=== PATIENT | female | born 1990 | race Hispanic/Latino ===

== ENCOUNTER 2018-10-28 14:34 | Inpatient (IN) | payer MEDICAID ==
[2018-10-28 16:02] LABS: Hematocrit 34.9 % (30.3-42.9); Hemoglobin 11.6 gm/dl (10.1-14.3); Mean Corpuscular HGB Conc 33 % (30-34); Mean Corpuscular Volume 82 fl (79-97); Platelet Count 255 K/mm3 (140-440); Red Blood Count 4.26 M/mm3 (3.65-5.03); Red Cell Distribution Width 16.4 % (13.2-15.2)
[2018-10-28 16:18] LABS: Alanine Aminotransferase 13 units/L (7-56); Uric Acid 6.1 mg/dL (3.5-7.6)
[2018-10-28 17:00] LABS: Bilirubin,Urine NEG (Negative); Blood,Urine NEG (Negative); Color,Urine Yellow (Yellow); Mucus,Urine FEW /HPF; Urobilinogen,Urine < 2.0 mg/dL (<2.0)
--- NOTE | 2018-10-28 18:30 | Ultrasound Report ---
PROCEDURE: US OB FOLLOW UP TECHNIQUE: Pelvic obstetrical sonographic imaging was performed HISTORY: date/iufd COMPARISONS: None FINDINGS: Images demonstrate single intrauterine gestation in breech presentation. Posterior placenta grade 0. No heart rate is identified. demise. estimated gestational age as follows: Biparietal diameter 24 weeks 6 days Head circumference 25 weeks 3 days Abdominal circumference 25 weeks 5 days Femur length 24 weeks 3 days Calculated estimated gestational age by ultrasound is 25 weeks 1 day with estimated due date of 2018 Estimated weight is 779 g. HC/AC 1.1 cephalic index 77.8. Very low amniotic fluid volume. IMPRESSION: demise. Estimated weight 779 g. Very little amniotic fluid is present. Critical level 1 results. Findings are called on 10/28/2018 at 1828 hours Eastern standard time. This document is electronically signed by Gloria Hernandez MD., Oct 28 2018 06:28:29 PM ET
[2018-10-28] MEDS: CYTOTEC VG SCH (20:56)
--- NOTE | 2018-10-28 21:10 | History and Physical Report ---
History of Present Illness Date of examination: 10/28/18 Date of admission: 10/28/18 14:34 Chief complaint: demise History of present illness: 28y/o @ 25+1 weeks presents for induction of labor secondary to demise. The patient presented yesterday for her first OB appt in this and was found to have a demise. Her history is complicated 2 deliveries secondary to severe preeclampsia(HELLP). The patient underwent deliveries for both pregnancies. The patient and denies vaginal bleeding or leakage of fluid. She has not had any preeclamptic symptoms during the . Past History Past Medical History: other (preeclampsia) Past Surgical History: section Social history: single - Obstetrical History Expected Date of Delivery: 02/09/19 Actual Gestation: 25 Week(s) 1 Day(s) : 3 Para: 2 Hx # Term Pregnancies: 0 Number of Pregnancies: 2 Spontaneous Abortions: 0 Induced : 0 Number of Living Children: 2 Medications and Allergies Allergies Allergy/AdvReac Type Severity Reaction Status Date / Time No Known Allergies Allergy Verified 04/25/14 02:30 Home Medications Medication Instructions Recorded Confirmed Last Taken Type Ibuprofen [Motrin] 800 mg PO Q8H #30 tablet 04/25/14 Unknown Rx methOCARBAMOL [Robaxin] 500 mg PO BID #30 tab 04/25/14 Unknown Rx traMADol [Ultram 50 MG tab] 50 mg PO Q6HR PRN #30 tablet 04/25/14 Unknown Rx Active Meds: Active Medications Misoprostol (Cytotec) 200 mcg VG Q6HR ANDREW Last Admin: 10/28/18 20:56 Dose: 200 mcg Documented by: Review of Systems All systems: negative - Vital Signs Vital signs: Vital Signs Pulse BP 75 130/80 10/28/18 16:12 10/28/18 16:12 Temp Pulse Resp BP Pulse Ox 97.9 F 99 H 16 124/87 10/28/18 18:30 10/28/18 20:59 10/28/18 18:30 10/28/18 20:59 - Physical Exam Breasts: Positive: deferred Cardiovascular: Regular rate Lungs: Positive: Clear to auscultation Abdomen: Positive: normal appearance Results Result Diagrams: 10/28/18 15:41 10/28/18 15:41 Abnormal lab results 0510/28/18 10/28/18 Range/Units 15:41 15:41 16:35 WBC 12.6 H (4.5-11.0) K/mm3 MCH 27 L (28-32) pg RDW 16.4 H (13.2-15.2) % Creatinine 0.5 L (0.7-1.2) mg/dL Lactate Dehydrogenase 245 H (91-180) units/L Urine pH 8.0 H (5.0-7.0) All other labs normal. Assessment and Plan - Patient Problems (1) demise Current Visit: Yes Status: Acute Plan to address problem: Admit for induction of labor
[2018-10-28] MEDS ORDERED: AMBIEN PO PRN (22:45)
[2018-10-28] MEDS ORDERED: AMBIEN ONE (22:46)
[2018-10-29] MEDS: CYTOTEC VG SCH ×3 (04:00→17:00)
[2018-10-29] MEDS: STADOL IV PRN ×3 (04:37→13:56)
[2018-10-29] MEDS ORDERED: ZOFRAN IV PRN (06:49)
[2018-10-29] MEDS ORDERED: LACTATED RINGERS 1,000 ML IV SCH (10:00)
[2018-10-29] MEDS ORDERED: NARCAN 2 MG/2 ML IV PRN (10:25)
--- NOTE | 2018-10-29 10:25 | Anesthesia Consultation ---
Anesthesia Consult and Med Hx Date of service: 10/29/18 - Airway Anesthetic Teeth Evaluation: Good ROM Head & Neck: Adequate Mental/Hyoid Distance: Adequate Mallampati Class: Class II Intubation Access Assessment: Probably Good - Pre-Operative Health Status ASA Pre-Surgery Classification: ASA2 Proposed Anesthetic Plan: Epidural, Spinal - Pulmonary Hx Asthma: No COPD: No Hx Pneumonia: No - Cardiovascular System Hx Hypertension: No - Central Nervous System Hx Seizures: No Hx Psychiatric Problems: No - Endocrine Hx Renal Disease: No Hx End Stage Renal Disease: No Hx Hypothyroidism: No Hx Hyperthyroidism: No - Hematic Hx Anemia: No Hx Sickle Cell Disease: No - Other Systems Hx Alcohol Use: No
[2018-10-29] MEDS ORDERED: SUBLIMAZE ONE (10:44)
[2018-10-29] MEDS ORDERED: fentaNYL-BUPIV 2 MCG/ML-0.125% 200 MCG/100 ML BAG EPIDURAL SCH (11:00)
[2018-10-29] MEDS ORDERED: SUBLIMAZE IV ONE (11:36)
[2018-10-29] MEDS ORDERED: AFLURIA QUAD 2018-2019 SYRINGE IM ONE (12:00)
--- NOTE | 2018-10-29 17:25 | Progress Note ---
Assessment and Plan A/P HP#2 IUFD IOL with cytototec offer epidural continue with IOL with cytotec expect vaginal delivery Subjective - Subjective Date of service: 10/29/18 Principal diagnosis: IUFD, hx of hellp Patient reports: loss of fluid (arom meconium ), movement normal, no new complaints, no vaginal bleeding, no contractions Objective - Vital Signs Vital Signs: Vital Signs - 12hr 10/29/18 10/29/18 10/29/18 08:04 08:24 08:35 Temperature 97.0 F L Pulse Rate 85 56 L Blood Pressure 144/97 120/67 10/29/18 10/29/18 10/29/18 09:05 09:35 10:05 Temperature Pulse Rate 74 52 L 64 Blood Pressure 129/71 124/60 131/70 10/29/18 10/29/18 10/29/18 10:35 11:05 11:34 Temperature Pulse Rate 83 57 L 65 Blood Pressure 171/80 138/89 137/87 10/29/18 10/29/18 10/29/18 12:04 12:34 13:35 Temperature Pulse Rate 83 92 H 71 Blood Pressure 139/77 138/81 184/103 10/29/18 10/29/18 10/29/18 13:56 14:05 14:35 Temperature Pulse Rate 85 67 85 Blood Pressure 180/98 135/85 147/89 10/29/18 10/29/18 15:04 17:02 Temperature 97.3 F L Pulse Rate 73 Blood Pressure 135/98 - Exam Breasts: normal Cardiovascular: Regular rate, Normal S1 Lungs: Clear to auscultation, Normal air movement Abdomen: Present: normal appearance, soft, normal bowel sounds. Absent: distention, tenderness, guarding Uterus: Present: normal, firm. Absent: bogginess, tenderness Cervical Dilatation: 3 Cervical Effacement Percentage: 80 station: 1 Uterine Contraction Pattern: Regular Uterine Tone Measurement Phase: Contraction Uterine Contraction Intensity: Moderate Extremities: normal Deep Tendon Reflex Grade: Normal +2 - Labs Labs: Abnormal Labs 10/28/18 10/28/18 10/28/18 15:41 15:41 16:35 WBC 12.6 H MCH 27 L RDW 16.4 H Creatinine 0.5 L Lactate Dehydrogenase 245 H Urine pH 8.0 H Laboratory Results - last 24 hr 10/28/18 15:45 Blood Type A NEGATIVE Antibody Screen Negative
[2018-10-29] MEDS ORDERED: PITOCin/NS 20 UNIT/1000ML DRIP 20 UNITS/1,000 ML BAG IV SCH (18:00)
[2018-10-29] MEDS ORDERED: PITOCin/NS 20 UNIT/1000ML DRIP 20,000 MILLIUNITS/1,000 ML BAG IV ONE (18:07)
--- NOTE | 2018-10-29 18:25 | Procedure Note ---
OB Delivery Note - Delivery Date of Delivery: 10/29/18 Surgeon: MARISEL KIM Estimated blood loss: 100cc - Vaginal Delivery presentation: breech Intrapartum events: no care, meconium, other(please specify) (iufd) Delivery induction: misoprostol Delivery augmentation: rupture of membranes Route of delivery: breech extraction Delivery placenta: spontaneous Delivery cord: 3 umbilical vessels Delivery laceration: none Anesthesia: none Delivery comments: Patient was noted to be c/c and +1 and delviered a non viable fetus breech extraction. The cord was calmped and cut and baby given to nurse. Apgars 0 and 0. No tears appreciated. Patient tolerate procedure well. Excellent hemostasis. EBL 100 cc - Infant A at 1 minute: 0 at 5 minutes: 0 Infant Gender: Female
[2018-10-29] MEDS: PERCOCET 5/325 PO PRN (21:42)
[2018-10-29] MEDS: IBUPROFEN PO PRN (21:42)
[2018-10-30] MEDS: CYTOTEC VG SCH ×2 (01:29→06:45)
[2018-10-30] MEDS: PERCOCET 5/325 PO PRN (04:19)
[2018-10-30 05:58] LABS: Hematocrit 28.4 % (30.3-42.9); Hemoglobin 9.6 gm/dl (10.1-14.3)
[2018-10-30] MEDS: IBUPROFEN PO PRN (06:45)
[2018-10-30 08:38] VITALS: BP 119/74
--- NOTE | 2018-10-30 08:40 | Progress Note ---
Assessment and Plan A/P PPD1 s/p nonviable baby VSS anemic on iron d/c home stable Subjective - Subjective Date of service: 10/30/18 Principal diagnosis: IUFD, hx of hellp Patient reports: appetite normal, voiding normally, pain well controlled, flatus, ambulating normally : (IUFD) Objective - Vital Signs Latest vital signs: Vital Signs Temp Pulse Resp BP BP Pulse Ox 10/30/18 07:32 98 F 91 H 18 119/74 10/30/18 05:55 98.6 F 87 18 120/80 96 10/30/18 01:29 99 F 77 18 120/78 98 10/29/18 21:00 99.6 F 102 H 16 140/88 100 10/29/18 20:05 113 H 130/78 10/29/18 19:35 100 H 143/70 10/29/18 19:05 92 H 148/86 10/29/18 18:35 100 H 173/86 10/29/18 18:21 100 H 170/74 10/29/18 18:20 94 H 177/82 10/29/18 18:06 51 L 85 10/29/18 18:04 102 H 91 10/29/18 18:00 94 H 98 10/29/18 17:02 97.3 F L 10/29/18 15:04 73 135/98 10/29/18 14:35 85 147/89 10/29/18 14:05 67 135/85 10/29/18 13:56 85 180/98 10/29/18 13:35 71 184/103 10/29/18 12:34 92 H 138/81 10/29/18 12:04 83 139/77 10/29/18 11:34 65 137/87 10/29/18 11:05 57 L 138/89 10/29/18 10:35 83 171/80 10/29/18 10:05 64 131/70 10/29/18 09:35 52 L 124/60 10/29/18 09:05 74 129/71 Intake and Output 10/29/18 10/30/18 10/30/18 23:59 07:59 15:59 Intake Total 600 Output Total 800 Balance -200 Intake: Oral 240 Intake, Free Water 360 Output: Urine 800 Void 800 Other: Total, Intake Amount 240 Total, Output Amount 500 Voiding Method Toilet Weight 70.307 kg - Exam Breasts: Present: normal Cardiovascular: Present: Regular rate, Normal S1 Lungs: Present: Clear to auscultation, Normal air movement Abdomen: Present: normal appearance, soft, normal bowel sounds. Absent: distention, tenderness, guarding Uterus: Present: normal, firm, fundal height below umbilicus. Absent: bogginess, tenderness Extremities: Present: normal Deep Tendon Reflex Grade: Normal +2 Incision: Present: normal, dry - Labs Labs: Abnormal lab results 10/30/18 Range/Units 05:40 Hgb 9.6 L (10.1-14.3) gm/dl Hct 28.4 L D (30.3-42.9) %
--- NOTE | 2018-10-30 09:15 | Discharge Summary ---
Providers - Providers Date of Admission: 10/28/18 14:34 Date of discharge: 10/30/18 Attending physician: SUBHASH BARRIOS Primary care physician: SUBHASH BARRIOS Hospitalization Reason for admission: IUFD Delivery: Episiotomy: none Laceration: none Incision: normal Other procedures: none complications: none Discharge diagnosis: delivery baby: female Hospital course: patient admitted for IUFD. she had a with cytotec. hx of hellp. BP normal. patient to f/u in 1-2 weny for BP check. Condition at discharge: Good Disposition: DC- TO HOME OR SELFCARE Plan - Discharge Medications Prescriptions: Ferrous Sulfate [Feosol 325 MG tab] 325 mg PO BID #60 tablet Ibuprofen [Motrin] 600 mg PO Q8H PRN #30 tablet PRN Reason: Pain oxyCODONE /ACETAMINOPHEN [Percocet 5/325] 1 tab PO Q6HR PRN #10 tablet PRN Reason: Pain - Provider Discharge Summary Activity: routine, no sex for 6 weeks, no strenuous exercise Diet: routine Instructions: routine Additional instructions: [] Smoking cessation referral if applicable(refer to patient education folder for contact #) [] Refer to [facility] Booklet Call your doctor immediately for: * Fever > 100.5 * Heavy vaginal bleeding ( >1 pad per hour) * Severe persistent headache * Shortness of breath * Reddened, hot, painful area to leg or breast * Drainage or odor from incision. * Keep incision clean and dry at all times and follow doctor's instructions regarding bathing/showering - Follow up plan Follow up: SUBHASH BARRIOS MD [Primary Care Provider] - 14 Days
== END 2018-10-30 12:35 | disposition home or self-care (01) | DRG 775 ==
LOC: LD 14:34 → OB 10-29 20:41
PROVIDERS: ADMIT Obstetrics & Gynecology; ATTEND Obstetrics & Gynecology
PROC: 10E0XZZ Delivery of Products of Conception, External Approach (ICD-10-PCS; principal; 2018-10-29)
PROC: 3E0P7VZ Introduction of Hormone into Female Reproductive, Via Natural or Artificial Opening (ICD-10-PCS; 2018-10-29)
PROC: 3E0334Z Introduction of Serum, Toxoid and Vaccine into Peripheral Vein, Percutaneous Approach (ICD-10-PCS; 2018-10-30)
DX: O36.4XX0 Maternal care for intrauterine death, not applicable or unspecified (principal); O60.12X0 Preterm labor second trimester with preterm delivery second trimester, not applicable or unspecified; O26.892 Other specified pregnancy related conditions, second trimester; O77.0 Labor and delivery complicated by meconium in amniotic fluid; O32.1XX0 Maternal care for breech presentation, not applicable or unspecified; Z67.11 Type A blood, Rh negative; Z37.1 Single stillbirth; Z3A.25 25 weeks gestation of pregnancy
CPT/HCPCS: 36415; 76816; 81001; 82565; 83615; 84450; 84460; 84550; 85014; 85018; 85027; 85461; 86850; 86900; 86901; 88305; 90686; G0378; J0595; J2405; J2590; J2790; J3010; J7120

== ENCOUNTER 2018-12-02 05:50 | Day surgery (SDC) | payer MEDICAID ==
[2018-12-02] MEDS ORDERED: NACL BACTERIOSTATIC INFILTRATI ONE (06:30)
[2018-12-02 06:57] LABS: Hematocrit 33.9 % (30.3-42.9); Hemoglobin 11.4 gm/dl (10.1-14.3)
[2018-12-02] MEDS ORDERED: LACTATED RINGERS 1,000 ML IV SCH (07:00)
[2018-12-02] MEDS ORDERED: SUBLIMAZE IV PRN (07:08)
[2018-12-02] MEDS ORDERED: ZOFRAN IV PRN (07:08)
--- NOTE | 2018-12-02 07:08 | Anesthesia Day of Surgery ---
Anesthesia Day of Surgery - Day of Surgery Patient Examined: Yes Patient H&P Reviewed: Yes Patient is NPO: Yes
--- NOTE | 2018-12-02 07:11 | Anesthesia Consultation ---
Anesthesia Consult and Med Hx Date of service: 12/02/18 - Airway Anesthetic Teeth Evaluation: Good ROM Head & Neck: Adequate Mental/Hyoid Distance: Adequate Mallampati Class: Class II Intubation Access Assessment: Good - Pre-Operative Health Status ASA Pre-Surgery Classification: ASA2 Proposed Anesthetic Plan: General - Pulmonary Hx Smoking: Yes Hx Asthma: No COPD: No Hx Pneumonia: No - Cardiovascular System Hx Hypertension: No - Central Nervous System Hx Seizures: No Hx Psychiatric Problems: No - Endocrine Hx Renal Disease: No Hx End Stage Renal Disease: No Hx Hypothyroidism: No Hx Hyperthyroidism: No - Hematic Hx Anemia: Yes Hx Sickle Cell Disease: No - Other Systems Hx Alcohol Use: No Hx Cancer: No
[2018-12-02] MEDS ORDERED: MARCAINE 0.5% INFILTRATI ONE ×2 (07:15→07:57)
--- NOTE | 2018-12-02 07:19 | Short Stay Summary ---
Short Stay Documentation Date of service: 12/02/18 Narrative H&P: 28y/o with undesired fertility. The patient has history of complicated and high risk pregnancies. She has no further childbearing desires. She has elected for permanent sterilization. - History Principal diagnosis: Undesired fertilty Past Medical History: other (HELLP syndrome) Past Surgical History: Social history: single - Allergies and Medications Current Medications: Allergies No Known Allergies Allergy (Verified 11/30/18 16:04) Home Medications Medication Instructions Recorded Confirmed Last Taken Type Ferrous Sulfate [Feosol 325 MG tab] 325 mg PO DAILY 11/30/18 11/30/18 Unknown History Active Medications Fentanyl (Sublimaze) 50 mcg IV Q5MIN PRN PRN Reason: Pain , Severe (7-10) Stop: 12/02/18 20:00 Lactated Ringer's (Lactated Ringers) 1,000 mls @ 100 mls/hr IV DIRECT ANDREW Ondansetron HCl (Zofran) 4 mg IV ONCE PRN PRN Reason: Nausea And Vomiting Stop: 12/02/18 20:00 - Physical exam General appearance: no acute distress Integumentary: no rash HEENT: Atraumatic Lungs: Clear to auscultation Breasts: deferred Heart: Regular rate Gastrointestinal: normal Female Genitourinary: deferred Rectal Exam: deferred Extremities: no ischemia Neurological: Normal gait - Brief post op/procedure progress note Date of procedure: 12/02/18 Pre-op diagnosis: Undesired fertility Post-op diagnosis: same Procedure: laparoscopy bilateral salpingectomy Anesthesia: [place] Surgeon: SUBHASH BARRIOS Estimated blood loss: minimal Pathology: list (bilateral fallopian tubes) Specimen disposition: to lab Condition: stable - Hospital course Hospital course: The patient was admitted the day of surgery underwent a laparoscopic bilateral salpingectomy. Please see operative note for further details. Postoperative course was uneventful. - Disposition Condition at discharge: Good Disposition: DC-01 TO HOME OR SELFCARE Short Stay Discharge Plan Activity: other (pelvic rest for 1 week) Diet: regular Additional Instructions: Follow-up is not required Follow-up as needed Prescriptions: Ibuprofen [Motrin] 800 mg PO Q8HR PRN #60 tablet PRN Reason: Pain, Mild (1-3) oxyCODONE /ACETAMINOPHEN [Percocet 5/325] 1 tab PO Q6HR PRN #20 tablet PRN Reason: Pain
[2018-12-02] MEDS ORDERED: ZEMURON IV ONE (07:24)
[2018-12-02] MEDS ORDERED: SUBLIMAZE ONE (07:24)
[2018-12-02] MEDS ORDERED: XYLOCAINE MPF 2% ONE (07:24)
[2018-12-02] MEDS ORDERED: DIPRIVAN 10 MG/ML IV ONE (07:25)
[2018-12-02] MEDS ORDERED: BLOXIVERZ ONE (08:31)
[2018-12-02] MEDS ORDERED: ROBINUL ONE (08:31)
[2018-12-02] MEDS ORDERED: ZOFRAN ONE (08:31)
[2018-12-02] MEDS ORDERED: DECADRON ONE (08:31)
--- NOTE | 2018-12-02 08:35 | Operative Report ---
Operative Report Operative Report: Date of surgery: 12/02/2018 Preoperative diagnosis: Unwanted fertility Postoperative diagnosis: Same as above Procedure: Laparoscopy Bilateral salpingectomy Left ovarian cystotomy Surgeon: Vira Arboleda M.D. Anesthesia: General endotracheal anesthesia Estimated blood loss: Minimal Findings: Normal uterus tubes and ovaries; left simple ovarian cyst Indication: 28-year-old with a history of undesired fertility. The patient desired permanent sterilization. Procedure: The patient was taken to the operating room and given general endotracheal anesthesia without complication. The patient is prepped and draped in a normal sterile fashion. A bivalve speculum was placed in the patient's vagina and a single-tooth tenaculum was placed on the anterior lip of the cervix .A uterine acorn manipulator was placed, and the bivalve speculum was then removed. Attention was then turned to the patient's abdomen where a 5 mm infraumbilical skin incision was then made. A Veress needle was placed and peritoneal entry was verified water-filled syringe. Insufflation of the peritoneal cavity was performed with CO2 gas. A 5 mm trocar was placed and the laparoscope was then inserted. The patient was then placed in Trendelenburg. A 7 mm suprapubic skin incision was then made. Under direct visualization a 7 mm trocar was then placed. An additional left lateral 5 mm trocar was placed under direct visualization. General survey of the patient's abdomen revealed normal uterus tubes and ovaries. The fallopian tube was then followed out to the fimbriated end. The right fallopian tube was grasp. The LigaSure device was inserted through the trocar. The mesosalpinx was coagulated and transected with removal of the right fallopian tube through the 7 mm trocar. This was performed on the contralateral side as well. There was evidence of a small simple left ovarian cyst where a cystotomy was performed with drainage of clear fluid. The trocars were then removed. The pneumoperitoneum was then released. The 5 mm trocar laparoscope was then removed. The skin incisions were then closed with 4-0 Monocryl. The incisions were injected with quarter percent Marcaine. Dressings were applied to the incision. The vaginal instruments were then removed atraumatically. Then successfully extubated and taken to the recovery room. All sponge laps and needle counts were correct 2.
[2018-12-02] MEDS ORDERED: PROVENTIL IH ONE ×2 (08:46→09:00)
[2018-12-02] MEDS ORDERED: PERCOCET 5/325 PO PRN (09:14)
[2018-12-02 10:22] VITALS: BP 135/82
--- NOTE | 2018-12-02 18:05 | Post Anesthesia Evaluation ---
- Post Anesthesia Evaluation Patient Participated: Yes Airway Patent: Yes Stable Respiratory Function: Yes Nausea/Vomiting: No Temp > 96.8F: Yes Pain Manageable: Yes Adequeate Hydration: Yes Anesthesia Complications: No
== END 2018-12-02 10:05 | disposition home or self-care (01) ==
LOC: OR 05:50
PROVIDERS: ATTEND Obstetrics & Gynecology
DX: Z30.2 Encounter for sterilization (principal); D64.9 Anemia, unspecified; F17.210 Nicotine dependence, cigarettes, uncomplicated; Z79.899 Other long term (current) drug therapy; Z98.891 History of uterine scar from previous surgery; Z98.890 Other specified postprocedural states; Z88.8 Allergy status to other drugs, medicaments and biological substances
CPT/HCPCS: 36415; 49322; 58661; 81025; 85014; 85018; 88302; J1100; J2405; J2704; J2710; J3010; J7120